=== PATIENT | female | born 1945 ===

== ENCOUNTER 2017-08-20 08:58 | Emergency (ER) | payer MEDICARE, OTHER ==
[2017-08-20 09:01] VITALS: TEMP 98.2; O2SAT 99
--- NOTE | 2017-08-20 09:58 | ED PDOC ---
HPI: General Adult Time Seen by Provider: 08/20/17 09:25 Chief Complaint (Nursing): Lower Extremity Problem/Injury History Per: Patient History/Exam Limitations: no limitations Onset/Duration Of Symptoms: Days (x prior to arrival) Current Symptoms Are (Timing): Still Present Additional Complaint(s): Sharifa is a 71 year old female who presents [facility] for medical evaluation s/p trip and fell prior to arrival. Patient is complaining of left knee pain and nose pain. Denies loss of consciousness, neck pain, paratheisas or weakness. Did not attmept to ambulate after injuries. Tetanus UTD. PMD: Sonny Allen Past Medical History Reviewed: Nursing Documentation, Vital Signs Vital Signs: Last Vital Signs Temp 98.2 F 08/20/17 09:01 Pulse 90 08/20/17 11:55 Resp 18 08/20/17 11:55 BP 152/94 H 08/20/17 11:55 Pulse Ox 99 08/22/17 08:00 - Family History Family History: States: Unknown Family Hx - Social History Current smoker - smoking cessation education provided: No Alcohol: None - Home Medications Home Medications: Ambulatory Orders Medication Instructions Recorded Acetaminophen with Codeine 1 tab PO Q6H PRN #10 tab 08/20/17 [Tylenol with Codeine No. 3 300 mg-30 mg] - Allergies Allergies/Adverse Reactions: Allergies Allergy/AdvReac Type Severity Reaction Status Date / Time No Known Allergies Allergy Verified 08/20/17 09:10 Physical Exam - Reviewed Nursing Documentation Reviewed: Yes Vital Signs Reviewed: Yes - Physical Exam Appears: Positive for: Well, No Acute Distress Head Exam: Positive for: ATRAUMATIC, NORMAL INSPECTION, NORMOCEPHALIC Skin: Positive for: Normal Color, Warm, Dry Eye Exam: Positive for: Normal appearance, EOMI, PERRL ENT: Positive for: Other (NASAL BRIDGE: Edema, ecchymosis, no laceration, no abrasion) Neck: Positive for: Normal, Painless ROM, Supple. Negative for: Pain On Movement Of Neck Cardiovascular/Chest: Positive for: Regular Rate, Rhythm Respiratory: Positive for: Normal Breath Sounds. Negative for: Respiratory Distress Back: Negative for: Other (C-Spine Tenderness) Extremity: Positive for: Other (Superficial abrasion noted to left anterior knee ). Negative for: Normal ROM ((+): Decreased ROM secondary to pain) Neurologic/Psych: Positive for: Alert, operations director II-XII, Oriented. Negative for: Motor/Sensory Deficits - ECG O2 Sat by Pulse Oximetry: 99 (RA) Pulse Ox Interpretation: Normal Medical Decision Making Medical Decision Making: Time: 09:30 Impression(s): Nasal fracture, Knee Contusion Plan: - Left Knee X-Ray - Nasal Bones X-Ray Time: 10:38 Nasal Bones X-Ray FINDINGS: Minimally displaced comminuted bilateral nasal bone fracture deformities. Suspect overlying mild soft tissue swelling. Anterior nasal spine appears intact. IMPRESSION: There are minimally displaced comminuted bilateral nasal bone fracture deformities. Time: 10:39 Left Knee X-Ray FINDINGS: BONES: No evidence of acute displaced fracture nor dislocation. Osseous structures appear intact JOINTS: Very tiny posterior patellar osteophyte formation JOINT EFFUSION: No significant joint effusion OTHER FINDINGS: None. IMPRESSION: No evidence of acute displaced fracture nor dislocation. Scribe Attestation: Documented by Jayme Isaac, acting as a scribe for Dede Robles MD. Provider Scribe Attestation: All medical record entries made by the Scribe were at my direction and personally dictated by me. I have reviewed the chart and agree that the record accurately reflects my personal performance of the history, physical exam, medical decision making, and the department course for this patient. I have also personally directed, reviewed, and agree with the discharge instructions and disposition. Disposition - Clinical Impression Clinical Impression: Nasal bone fractures, Knee contusion - Patient ED Disposition Is Patient to be Admitted: No - Disposition Disposition: Routine/Home Disposition Time: 11:02 Condition: STABLE Additional Instructions: GO TO [facility] TODAY FOR ENT REFERRAL. Prescriptions: Acetaminophen with Codeine [Tylenol with Codeine No. 3 300 mg-30 mg] 1 tab PO Q6H PRN #10 tab PRN Reason: Pain, Severe (8-10) Instructions: Nasal Fracture (ED), Contusion in Adults (ED) Forms: [employer] ([place])
--- NOTE | 2017-08-20 10:40 | RAD ---
PROCEDURE: Nasal bones dated 08/20/2017 HISTORY: Fall COMPARISON: No prior TECHNIQUE: Frontal and lateral radiographs of the nasal bones. FINDINGS: Minimally displaced comminuted bilateral nasal bone fracture deformities. Suspect overlying mild soft tissue swelling. Anterior nasal spine appears intact. IMPRESSION: There are minimally displaced comminuted bilateral nasal bone fracture deformities.
--- NOTE | 2017-08-20 10:41 | RAD ---
PROCEDURE: Left Knee Radiographs. HISTORY: Pain. COMPARISON: None. FINDINGS: BONES: No evidence of acute displaced fracture nor dislocation. Osseous structures appear intact JOINTS: Very tiny posterior patellar osteophyte formation JOINT EFFUSION: No significant joint effusion OTHER FINDINGS: None. IMPRESSION: No evidence of acute displaced fracture nor dislocation.
[2017-08-20 11:56] VITALS: BP 152/94; PULSE 90; RESP 18
== END 2017-08-20 11:38 | disposition home or self-care (01) ==
LOC: H.ER 08:58
DX: S02.2XXA Fracture of nasal bones, initial encounter for closed fracture (principal); S80.02XA Contusion of left knee, initial encounter; W01.0XXA Fall on same level from slipping, tripping and stumbling without subsequent striking against object, initial encounter; Y92.89 Other specified places as the place of occurrence of the external cause